=== PATIENT | female | born 1995 | race Two or more races ===

== ENCOUNTER 2023-05-03 04:59 | Emergency (ER) | payer OTHER, SELFPAY ==
--- NOTE | ~2023-05-03 | XR_ITS ---
EXAMINATION: XR CHEST CLINICAL INFORMATION: Chest pain from coughing. COMPARISON: None available. TECHNIQUE: Frontal view of the chest was obtained. FINDINGS: No significant abnormality is noted involving the heart, lungs, mediastinum, bony thorax or soft tissues. XR/XR chest 1V IMPRESSION: Unremarkable examination.
[2023-05-03 05:04] VITALS: BP 124/73; BP 129/90; PULSE 80; PULSE 82; RESP 20; TEMP 36.8; O2SAT 100; O2SAT 98; BMI 32.9
[2023-05-03 05:54] LABS: Influenza A PCR NEGATIVE (Negative); Influenza B PCR NEGATIVE (Negative); Resp Syncy Virus RNA Qual PCR NEGATIVE (Negative); SARS COV2 PCR INHOUSE NEGATIVE (Negative)
--- NOTE | 2023-05-03 10:21 | ECG_ITS ---
Test Reason : CHEST PAIN Blood Pressure : / mmHG Vent. Rate : 072 BPM Atrial Rate : 072 BPM P-R Int : 130 ms QRS Dur : 092 ms QT Int : 398 ms P-R-T Axes : 032 050 046 degrees QTc Int : 435 ms Normal sinus rhythm Normal ECG No previous ECGs available Referred By: Edward Valadez Electronically Signed By:SRINIVASAN WASSERMAN MD
--- NOTE | 2023-05-03 10:56 | ED_ITS ---
HPI - URI/Sore Throat General Chief Complaint: Upper Respiratory Symptoms Stated Complaint: COUGH Time Seen by Provider: 05/03/23 09:11 History of Present Illness HPI Narrative: Patient complains of several days of body aches, runny nose, cough, mild headache, now her chest hurts when she coughs but no shortness of breath, no nausea or vomiting, there is no other chest pain and it is not related to exertion no asthma no wheezing no sore throat no nausea vomiting or diarrhea no difficulty swallowing no rash no dysuria Related Data Previous Rx's Medication Instructions Recorded azithromycin 250 mg tablet See Rx Instructions PO .COMPLEX #6 05/03/23 (Zithromax Z-Kev) tabs Allergies Allergy/AdvReac Type Severity Reaction Status Date / Time amoxicillin AdvReac Hives Verified 05/03/23 05:14 [facility] Past Medical History Source: nursing notes reviewed Social History Social History Advance Directives: No Advance Directives Information Provided: No Physical Exam Vital Signs: Vital Signs: Last Vital Signs Temp 98.3 F 05/03/23 05:04 Pulse 80 05/03/23 05:04 Resp 20 05/03/23 05:04 BP 129/90 H 05/03/23 05:04 Pulse Ox 98 05/03/23 05:04 O2 Del Method Room Air 05/03/23 05:04 BMI result Body Mass Index 32.9 General appearance is no distress comfortable cooperative speaking full sentences The eyes no redness or discharge The sinuses are nontender The pharynx is clear without redness swelling or exudate mucous membranes are moist voice is normal Neck is supple The chest is clear to auscultation with full symmetric equal breath sounds no wheezing Heart no murmur auscultated Abdomen soft nontender Extremities range motion x4 Skin no rash Course Course Course Narrative: Viral testing for COVID flu an RSV all negative EKG done because of the chest pain only with cough showed a normal sinus rhythm with a rate of 72, normal LA normal QRS normal QT, no ST elevations no ischemic changes Chest x-ray was normal with no evidence of pneumonia no pneumothorax Well-appearing patient with worsening cough is sent home with prescription for antibiotic for bronchitis and a work note Medical Decision Making Lab Data Labs: Lab Results 05/03/23 Range/Units 05:13 Influenza Type A (PCR) NEGATIVE (Negative) Influenza Type B (PCR) NEGATIVE (Negative) RSV RNA Qual (PCR) NEGATIVE (Negative) SARS-CoV-2 RNA (RT-PCR) NEGATIVE (Negative) Discharge Plan Discharge Clinical Impression: Bronchitis Patient Disposition: Home, Self-Care Additional Instructions: EKG was done because of the pain in her chest with coughing and it was totally normal Chest x-ray did not show any pneumonia Viral testing for COVID and flu was negative As cough is worsening I prescribed antibiotics Zithromax for bronchitis, it is fine to wait a day or 2 and see which weight is going if it is getting worse obviously start the antibiotic but there is a good chance this is a virus and you may not need the antibiotics so it is safe to wait a day or 2 and see if it starts to get better on its own Return any time for difficulty breathing dehydration any worse condition or any concerns Prescriptions: New azithromycin [Zithromax Z-Kev] 250 mg tablet See Rx Instructions .ROUTE .COMPLEX Qty: 6 0RF Rx Instructions: For 250 mg dose pack: take 500 mg today (day 1), then 250 mg for 4 days (days 2-5) Stand Alone Forms: Work/School Release
== END 2023-05-03 11:15 | disposition home or self-care (01) ==
PROVIDERS: Emergency Provider Emergency Medicine
DX: J40 Bronchitis, not specified as acute or chronic (principal); R05.9 Cough, unspecified; M79.10 Myalgia, unspecified site; R51.9 Headache, unspecified; Z20.822 Contact with and (suspected) exposure to COVID-19; Z20.828 Contact with and (suspected) exposure to other viral communicable diseases
CPT/HCPCS: 0241U; 71045; 93005; 99283

== ENCOUNTER → 2023-05-03 10:21 | Outpatient (BNV) | payer OTHER, SELFPAY | PROVIDERS: Emergency Provider Emergency Medicine; Visit Provider Internal Medicine Cardiovascular Disease | DX: R07.9 Chest pain, unspecified (principal) | CPT/HCPCS: 93010 ==